=== PATIENT | female | born 1960 | race Caucasian/White ===

== ENCOUNTER 2019-03-21 12:22 | Emergency (ER) | payer BC ==
[2019-03-21 12:41] VITALS: BP 127/71
--- NOTE | 2019-03-21 13:22 | UC ---
Complaint Female HPI - HPI Summary HPI Summary: Patient is a 58-year-old female, history of IgA nephropathy, hypertension, here with urinary symptoms. Patient has urinary frequency and urgency at baseline. Over the past 3 weeks, patient's frequency and urgency has gotten worse. The past 24 hours, patient's had dysuria and bilateral flank pain. Patient states every time she has IgA nephropathy flare she has flank pain. Patient was told by her cat scan tech her no medications to help with her IgA nephropathy. Patient sees Dr. Mortensen for nephrology. Patient has no fever, chills, dull pain , nausea, vomiting, vaginal discharge, vaginal bleeding. Medications reviewed - History Of Current Complaint Chief Complaint: UCGU Stated Complaint: URINARY Time Seen by Provider: 03/21/19 12:44 Hx Obtained From: Patient Pain Intensity: 6 - Allergies/Home Medications Allergies/Adverse Reactions: Allergies Allergy/AdvReac Type Severity Reaction Status Date / Time latex Allergy Rash Verified 03/21/19 12:41 Sulfa (Sulfonamide Allergy Rash Verified 03/21/19 12:41 Antibiotics) Home Medications: Home Medications Adapalene 0.1% CREAM (NF) [Differin 0.1 % CREAM (NF)] 0.1 % EX BEDTIME 03/21/19 [History Confirmed 03/21/19] Armodafinil 250 mg PO DAILY 03/21/19 [History Confirmed 03/21/19] Atenolol TAB* [Tenormin TAB* 50 MG] 50 mg PO DAILY 03/21/19 [History Confirmed 03/21/19] Atorvastatin* [Lipitor*] 40 mg PO DAILY 03/21/19 [History Confirmed 03/21/19] Desloratadine [Desloratadine Odt] 2.5 mg PO DAILY 03/21/19 [History Confirmed ] Divalproex ER TAB(*) [Depakote ER TAB(*)] 1,000 mg PO BEDTIME 03/21/19 [History Confirmed 03/21/19] Epinastine 0.05% OPHTH(NF) [Elestat 0.05% OPTH ASAEL (NF)] 1 drop BOTH EYES BID [History Confirmed 03/21/19] Flunisolide NASAL (NF) [Nasalide NASAL (NF)] 2 spray .ROUTE DAILY 03/21/19 [ History Confirmed 03/21/19] Nortriptyline CAP* [Pamelor CAP*] 50 mg PO BEDTIME 03/21/19 [History Confirmed 03/21/19] Pantoprazole TAB (NF) [Protonix TAB (NF)] 20 mg PO DAILY 03/21/19 [History Confirmed 03/21/19] Sertraline* [Zoloft*] 150 mg PO DAILY 03/21/19 [History Confirmed 03/21/19] amLODIPine TAB* [Norvasc 5 mg TAB*] 10 mg PO DAILY 03/21/19 [History Confirmed 03/21/19] traMADol TAB* [Ultram*] 50 mg PO Q8H PRN 03/21/19 [History Confirmed 03/21/19] PMH/Surg Hx/FS Hx/Imm Hx Previously Healthy: No - IgA nephropathy, hypertension, hypercholesterolemia, depression, migraines Other History Of: Negative For: Anticoagulant Therapy - Surgical History Surgical History: Yes Surgery Procedure, Year, and Place: 1967- [facility] appendectomy, 1979 [facility] [place]-benign fibroid tumor removed (right) breast, 1996 [facility] [place] knee, 1999 [facility] [place]- (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- IGA NEPHROPATHY. (right) achilles tendon, [facility] (left) achilles. tendon, 02/02 [facility]- (right) hand carpal tunnel & trigger. thumb, 03/05 [facility]- (left) hand carpal tunnel & trigger thumb release - Family History Known Family History: Positive: Non-Contributory - Social History Alcohol Use: None Substance Use Type: None Substance Use Comment - Amount & Last Used: none in 14 yrs Smoking Status (MU): Former Smoker Type: Cigarettes Have You Smoked in the Last Year: Yes When Did the Patient Quit Smoking/Using Tobacco: october 2018 - Immunization History Most Recent Influenza Vaccination: fall 2014 Most Recent Tetanus Shot: up to date Review of Systems All Other Systems Reviewed And Are Negative: Yes Constitutional: Negative: Fever, Chills Respiratory: Negative: Shortness Of Breath Cardiovascular: Negative: Chest Pain Gastrointestinal: Negative: Abdominal Pain, Vomiting, Diarrhea, Nausea Genitourinary: Positive: Dysuria, Hematuria, Frequency, Urgency. Negative: Vaginal/Penile Burning, Vaginal/Penile Itching, Vaginal/Penile Discharge Physical Exam - Summary Physical Exam Summary: Vital Signs Reviewed: Yes A+Ox3, no distress Eyes: Conjunctiva Clear, PERRL. EOM intact and full ENT: Hearing grossly normal TM x 2 clear, moist, uvula midline, no exudate, no erythema Neck: Positive: Supple Respiratory: Positive: No respiratory distress, No accessory muscle use + CTA throughout no w/r Cardiovascular: RRR nl s1, s2 no m/r CBT <2 sec. No CVA TTP abd soft + BS nt/nd no guarding, no distension Musculoskeletal Exam: FLOWERS x 4 without difficulty Strength Intact, ROM Intact Neurological: Positive: Alert, + sensation throughout Psychological: Positive: Normal Response To Family Skin: no rash, no ecchymosis Vital Signs: Initial Vital Signs Temp 97.1 F 03/21/19 12:29 Pulse 85 03/21/19 12:29 Resp 16 03/21/19 12:29 BP 127/71 03/21/19 12:29 Pulse Ox 97 03/21/19 12:29 Complaint Female Dx - Course Course Of Treatment: Patient is here with symptoms consistent with cystitis. Patient does not have pyelonephritis on exam or through history. The only reflect symptom and patient 's history is a history of IgA nephropathy. Patient does have blood in protein in her urine which is baseline for her. Patient was started on Keflex and was encouraged to call her cat scan tech on Saturday to set appointment in the next 1- 3 days. - Differential Dx/Diagnosis Provider Diagnosis: Cystitis, IgA nephropathy Discharge ED - Sign-Out/Discharge Documenting (check all that apply): Patient Departure All imaging exams completed and their final reports reviewed: No Studies - Discharge Plan Condition: Stable Disposition: HOME Prescriptions: Cephalexin CAP* [Keflex CAP*] 500 mg PO QID 7 Days #28 cap Patient Education Materials: Urinary Tract Infection in Women (ED) Forms: *Work Release Referrals: Lucy Britt MD [Primary Care Provider] - Nicholas Mcclellan MD [Medical Doctor] - Additional Instructions: Please follow up with your cat scan tech in the next 1-3 days Please take your antibiotics Please go to the emergency department if you have worsening pain, fever, more blood in your urine, vomiting, any other concerning symptoms - Billing Disposition and Condition Condition: STABLE Disposition: Home
--- NOTE | 2019-03-23 09:43 | UC ---
- Progress Note Progress Note: Ms. Barber's final urine culture revealed no growth. I recommended she stop the antibiotics and follow up as previously directed. Course/Dx - Diagnoses Provider Diagnoses: Cystitis, IgA nephropathy Discharge ED - Sign-Out/Discharge Documenting (check all that apply): Patient Departure All imaging exams completed and their final reports reviewed: No Studies - Discharge Plan Condition: Stable Disposition: HOME Prescriptions: Cephalexin CAP* [Keflex CAP*] 500 mg PO QID 7 Days #28 cap Patient Education Materials: Urinary Tract Infection in Women (ED) Forms: *Work Release Referrals: Lucy Britt MD [Primary Care Provider] - Nicholas Mcclellan MD [Medical Doctor] - Additional Instructions: Please follow up with your patternmaker helper in the next 1-3 days Please take your antibiotics Please go to the emergency department if you have worsening pain, fever, more blood in your urine, vomiting, any other concerning symptoms - Billing Disposition and Condition Condition: STABLE Disposition: Home
== END 2019-03-21 13:40 | disposition home or self-care (01) ==
LOC: UCEAST 12:22
DX: N30.00 Acute cystitis without hematuria (principal); N02.8 Recurrent and persistent hematuria with other morphologic changes; I10 Essential (primary) hypertension; G43.909 Migraine, unspecified, not intractable, without status migrainosus; F32.9 Major depressive disorder, single episode, unspecified; Z88.2 Allergy status to sulfonamides; Z91.040 Latex allergy status; Z87.891 Personal history of nicotine dependence
CPT/HCPCS: 81003; 87086; 99212; G0463

== ENCOUNTER 2021-06-08 18:19 | Observation (INO) ==
[2021-06-08] MEDS: HYDROmorphone 1 MG/1 ML SYRINGE IV PRN ×5 (16:40→17:00)
[2021-06-08] MEDS: Lactated Ringers 1000 ml BAG 1,000 ML IV SCH (18:10)
[~2021-06-08 18:19] MED LIST: Acetaminophen IV 1 GM/100ML 100 ML IV ONE; Buffered Lidocaine 1% SYRIN 1 ml INTRADERM ONE; Bupivacaine 0.5% SDV PF 30ML VIAL ONE; Dexamethasone IV 4 MG/ML VIAL 1 ml VIAL ONE; DiMENhydriNATE IV 50 mg/ml 1 ml VIAL IV PUSH PRN; ELETRIPTAN 40 MG PO PRN; HYDROmorphone 1 MG/1 ML SYRINGE ONE; Lactated Ringers 1000 ml BAG 1,000 ML IV SCH; Lactulose 30 ml UDC PO PRN; Magnesium Hydroxide LIQ 30 ML UDC PO PRN; Midazolam 2 mg/2 ml VIAL 1 mg/ml 2 ml VIAL (2 mg) ONE; Morphine 2 MG/ML SYRINGE IV PRN; Naloxone 0.4 mg VIAL 0.4 mg/ml 1 ml VIAL IV PRN; Ondansetron 4 mg VIAL 2 MG/ML 2 ml VIAL IV PRN; Ondansetron 4 mg VIAL 2 MG/ML 2 ml VIAL ONE; Ondansetron ODT 4 mg TAB 4 MG TAB PO PRN; Propofol 10 mg/ml 100 ML BTL 100 ML ONE; ceFAZolin 2 GM PREMIX 2 GM/50 ML BAG ONE; diPHENhydraMINE 25 mg TAB PO PRN; diPHENhydraMINE IV 50 MG/ML 1 ml VIAL (BENADRYL) IV PRN; fentaNYL 100 mcg/2 ml 50 MCG/ML VIAL IV PRN
[2021-06-08] MEDS ORDERED: Albuterol HFA INHALER 8 gm MDI INH PRN (18:23)
[2021-06-08] MEDS: Magnesium Hydroxide LIQ 30 ML UDC PO SCH (20:59)
[2021-06-09] MEDS: ceFAZolin 1 GM ADVAN 1 GM in NS 0.9% 50 ML 50 ML IVPB SCH ×3 (00:01→13:53)
[2021-06-09 05:02] LABS: Hematocrit 26 % (35-47); Hemoglobin 8.9 g/dL (12.0-16.0); Mean Platelet Volume 7.8 fL (7.4-10.4); Platelet Count 174 10^3/uL (150-450)
[2021-06-09 05:24] LABS: Calcium 8.9 mg/dL (8.6-10.3); eGFR CKD-EPI 67.7 (>60)
[2021-06-09] MEDS: Lactated Ringers 1000 ml BAG 1,000 ML IV SCH (06:20)
[2021-06-09] MEDS ORDERED: Vitamin THERAPEUTIC TAB PO SCH (09:00)
[2021-06-09] MEDS: Magnesium Hydroxide LIQ 30 ML UDC PO SCH (10:33)
[2021-06-09 12:22] VITALS: BP 106/43
== END 2021-06-09 15:00 | disposition home or self-care (01) ==
LOC: SSU 18:19 → OR 18:19
PROVIDERS: ADMIT Orthopaedic Surgery Adult Reconstructive Orthopaedic Surgery; ATTEND Orthopaedic Surgery Adult Reconstructive Orthopaedic Surgery

== ENCOUNTER 2023-12-08 18:58 | Inpatient (IN) ==
[2023-12-08] MEDS: Orphenadrine Citrate INJ 30 mg/ml 2 ml VIAL (60 mg) IV ONE (20:01)
[2023-12-08 20:12] LABS: ABS Basophils 0.1 10^3/uL (0.0-0.1); ABS Lymphocytes 1.4 10^3/uL (1.0-4.8); ABS Monocytes 1.1 10^3/uL (0.0-0.9); ABS Neutrophils 8.7 10^3/uL (1.5-7.6); Eosinophil % 0.4 %; Hematocrit 35.2 % (35-45); Hemoglobin 11.8 g/dL (11.5-14.3); Lymphocyte % 12.6 %; Mean Corpuscular Hemoglobin 30.8 pg (27-33); Mean Corpuscular Hgb Conc 33.4 g/dL (31-36); Mean Corpuscular Volume 92.4 fL (80-97); Mean Platelet Volume 7.6 fL (7.5-11.2); Platelet Count 428 10^3/uL (150-450); Red Blood Count 3.81 10^6/uL (3.63-4.92); Red Cell Distribution Width 14.9 % (12-17); White Blood Count 11.3 10^3/uL (3.8-11.8)
[2023-12-08 21:07] LABS: Albumin 3.6 g/dL (3.2-5.2); Albumin/Globulin Ratio 0.9 (1-3); Calcium 9.6 mg/dL (8.6-10.3); Creatinine, Serum 0.75 mg/dL (0.51-0.95); Globulin 3.8 g/dL (2-4); Potassium 4.8 mmol/L (3.5-5.0); Total Bilirubin 0.3 mg/dL (0.2-1.0); Total Protein 7.4 g/dL (6.4-8.9); eGFR CKD-EPI 88.3 (>60)
[2023-12-08] MEDS: Iohexol 350 (CONTRAST) 500 ML MDV IV ONE (22:19)
[2023-12-08] MEDS: NS 0.9% 1000 ml BAG 1,000 ML IV ONE (22:46)
[2023-12-09] MEDS: Ondansetron ODT 4 mg TAB 4 MG TAB PO ONE (01:46)
[2023-12-09] MEDS: Lidocaine PATCH 5% PATCH TRANSDERM ONE (03:31)
[2023-12-09] MEDS: Morphine 4 MG/ML VIAL (1 ml) IV ONE (03:33)
[2023-12-09] MEDS ORDERED: Morphine 4 MG/ML VIAL (1 ml) IV PRN (04:05)
[2023-12-09] MEDS ORDERED: Naloxone 0.4 mg VIAL 0.4 mg/ml 1 ml VIAL IV PUSH PRN (04:06)
[2023-12-09] MEDS ORDERED: Morphine 2 MG/ML SYRINGE IV PRN (04:06)
[2023-12-09] MEDS ORDERED: Albuterol HFA INHALER 8 gm MDI INH PRN (05:01)
[2023-12-09] MEDS: Enoxaparin 40 MG/0.4 ML SYR SUBCUT SCH (05:10)
[2023-12-09 06:15] LABS: Calcium 8.7 mg/dL (8.6-10.3); Creatinine, Serum 0.7 mg/dL (0.51-0.95); Potassium 4.2 mmol/L (3.5-5.0); eGFR CKD-EPI 95.9 (>60)
[2023-12-09] MEDS: Acetaminophen IV 1 GM/100ML 1,000 MG/100 ML BAG IV PRN (11:27)
[2023-12-09] MEDS: Ondansetron 4 mg VIAL 2 MG/ML 2 ml VIAL IV PRN (11:27)
[2023-12-09] MEDS: Magnesium Hydroxide LIQ 30 ML UDC PO SCH (20:30)
[2023-12-10 06:21] LABS: ABS Basophils 0.1 10^3/uL (0.0-0.1); ABS Eosinophils 0.2 10^3/uL (0.0-0.5); ABS Lymphocytes 1.6 10^3/uL (1.0-4.8); ABS Monocytes 1.1 10^3/uL (0.0-0.9); ABS Neutrophils 8.1 10^3/uL (1.5-7.6); ABS Nucleated RBC 0.01 10^3/ul; Eosinophil % 1.4 %; Hematocrit 34.5 % (35-45); Hemoglobin 11.7 g/dL (11.5-14.3); Lymphocyte % 14.4 %; Mean Corpuscular Hemoglobin 31.9 pg (27-33); Mean Corpuscular Hgb Conc 34.1 g/dL (31-36); Mean Corpuscular Volume 93.6 fL (80-97); Mean Platelet Volume 7.9 fL (7.5-11.2); Platelet Count 345 10^3/uL (150-450); Red Blood Count 3.68 10^6/uL (3.63-4.92); Red Cell Distribution Width 14.9 % (12-17); White Blood Count 10.9 10^3/uL (3.8-11.8)
[2023-12-10] MEDS: HYDROmorphone 1 MG/1 ML SYRINGE IV SLOW PU PRN (11:57)
[2023-12-10 12:33] LABS: Body Fluid Appearance Cloudy; Body Fluid Color Amber; Body Fluid Source Pleural Fluid
[2023-12-10 12:41] LABS: Body Fluid Total Nucleated 1902 /mcL
[2023-12-10 13:04] LABS: Body Fluid Mono 7 %; Body Fluid Other Cells 1; Body Fluid Total Cells Counted 200
[2023-12-10 15:03] LABS: Albumin 3.3 g/dL (3.2-5.2); Calcium 9.1 mg/dL (8.6-10.3); Creatinine, Serum 0.58 mg/dL (0.51-0.95); Globulin 3.3 g/dL (2-4); Potassium 4.7 mmol/L (3.5-5.0); Total Bilirubin 0.3 mg/dL (0.2-1.0); Total Protein 6.6 g/dL (6.4-8.9); eGFR CKD-EPI 100.4 (>60)
[2023-12-10] MEDS: Magnesium Hydroxide LIQ 30 ML UDC PO PRN (15:27)
[2023-12-10] MEDS: Senna TAB 8.6 mg TAB PO PRN (15:28)
[2023-12-11 07:01] LABS: ABS Eosinophils 0.1 10^3/uL (0.0-0.5); ABS Lymphocytes 1.2 10^3/uL (1.0-4.8); ABS Monocytes 1.4 10^3/uL (0.0-0.9); ABS Neutrophils 9.1 10^3/uL (1.5-7.6); ABS Nucleated RBC 0.01 10^3/ul; Hematocrit 33.6 % (35-45); Hemoglobin 11.3 g/dL (11.5-14.3); Lymphocyte % 10.4 %; Mean Corpuscular Hemoglobin 30.9 pg (27-33); Mean Corpuscular Hgb Conc 33.5 g/dL (31-36); Mean Corpuscular Volume 92.1 fL (80-97); Mean Platelet Volume 7.6 fL (7.5-11.2); Nucleated Red Blood Cells % 0.1 %/100WBC (0.0-0.8); Platelet Count 333 10^3/uL (150-450); Red Blood Count 3.65 10^6/uL (3.63-4.92); Red Cell Distribution Width 14.9 % (12-17); White Blood Count 11.9 10^3/uL (3.8-11.8)
[2023-12-11 07:58] LABS: Calcium 8.9 mg/dL (8.6-10.3); Creatinine, Serum 0.61 mg/dL (0.51-0.95); Potassium 5.4 mmol/L (3.5-5.0); eGFR CKD-EPI 99.2 (>60)
[2023-12-11] MEDS: Polyethylene Glycol 3350 17 GM PACKET PO PRN (08:52)
[2023-12-11] MEDS: Enoxaparin 40 MG/0.4 ML SYR SUBCUT SCH (08:52)
[2023-12-11 11:16] LABS: C Reactive Protein 100.71 mg/L (<8.01)
[2023-12-11] MEDS: SODIUM ZIRCONIUM CYCLOSILICATE 10 GM PACKET PO ONE (11:24)
[2023-12-11 12:18] LABS: Erythrocyte Sed Rate 62 mm/Hr (0-29)
[2023-12-11 18:32] LABS: Urine Appearance Clear; Urine Bilirubin Negative (Negative); Urine Blood 1+ (Negative); Urine Color Yellow; Urine Glucose Negative (Negative); Urine Ketones Trace (Negative); Urine Nitrite Negative (Negative); Urine Protein 1+ (>=30 mg/dL) (Negative); Urine Specific Gravity 1.026 (1.002-1.030); Urine Urobilinogen Negative (Negative); Urine pH 7.5 (5.0-8.0)
[2023-12-11 18:39] LABS: Urine Bacteria 1+ /HPF (Absent); Urine Red Blood Cell 3+(>10/hpf) /HPF (0-Trace); Urine Squamous Epithelial Cell Present /HPF (Absent); Urine White Blood Cell 3+(>20/hpf) /HPF (0-Trace)
[2023-12-12 06:45] LABS: Hematocrit 32.9 % (35-45); Hemoglobin 11.2 g/dL (11.5-14.3); Mean Corpuscular Hemoglobin 31.5 pg (27-33); Mean Corpuscular Hgb Conc 34.2 g/dL (31-36); Mean Corpuscular Volume 92.1 fL (80-97); Mean Platelet Volume 8.3 fL (7.5-11.2); Platelet Count 344 10^3/uL (150-450); Red Blood Count 3.57 10^6/uL (3.63-4.92); White Blood Count 10.7 10^3/uL (3.8-11.8)
[2023-12-12 07:06] LABS: Calcium 8.6 mg/dL (8.6-10.3); Creatinine, Serum 0.6 mg/dL (0.51-0.95); Potassium 4.5 mmol/L (3.5-5.0); eGFR CKD-EPI 99.5 (>60)
[2023-12-12 09:53] LABS: Glucose, BF 87 mg/dL
[2023-12-12 09:54] LABS: Albumin, BF 2.8 g/dL; Fluid Type, Albumin PLEURAL FLUID
[2023-12-12 09:55] LABS: Lactate Dehydrogenase, BF 396 U/L
[2023-12-12] MEDS ORDERED: oxyCODONE/Acetamin 5/325 mg TAB PO PRN (09:55)
[2023-12-12 09:57] LABS: Fluid Type, Protein, Total PLEURAL FLUID; Total Protein, BF 4.8 g/dL
[2023-12-12] MEDS: Lidocaine PATCH 4% TOPICAL SCH (13:28)
[2023-12-12] MEDS: oxyCODONE SR 10 mg TAB PO SCH (13:28)
[2023-12-12] MEDS: HYDROmorphone 1 MG/1 ML SYRINGE IV SLOW PU PRN (18:16)
[2023-12-13 04:30] LABS: Urine Creatinine Concentration 126.49 mg/dL (20.00-320.00); Urine TP Creat Ratio 0.37 mg/mg
[2023-12-13] MEDS: HYDROmorphone 1 MG/1 ML SYRINGE IV SLOW PU PRN (08:59)
[2023-12-13 14:52] LABS: Immunoglobulin G 1190 mg/dL (767 - 1590); Immunoglobulin M 80 mg/dL (37 - 286)
[2023-12-13 15:20] LABS: Complement C3 158 mg/dL (75 - 175)
[2023-12-13] MEDS: Morphine ER 30 mg TAB ** extended release PO SCH (20:54)
[2023-12-13] MEDS: Gadoteridol (CONTRAST) 279.3 MG/ML 10 ML IV ONE ×2 (21:55→23:00)
[2023-12-13] MEDS ORDERED: Morphine ER 15 mg TAB ** extended release PO SCH (22:00)
[2023-12-15] MEDS: Polyethylene Glycol 3350 17 GM PACKET PO SCH (11:33)
[2023-12-15] MEDS: Magnesium Hydroxide LIQ 30 ML UDC PO SCH (21:04)
[2023-12-15] MEDS: Senna TAB 8.6 mg TAB PO SCH (21:04)
[2023-12-16 07:46] LABS: Hematocrit 32.9 % (35-45); Mean Corpuscular Hemoglobin 31.2 pg (27-33); Mean Corpuscular Hgb Conc 33.5 g/dL (31-36); Mean Corpuscular Volume 93.1 fL (80-97); Mean Platelet Volume 8.9 fL (7.5-11.2); Platelet Count 321 10^3/uL (150-450); Red Blood Count 3.53 10^6/uL (3.63-4.92); Red Cell Distribution Width 14.8 % (12-17); White Blood Count 10.9 10^3/uL (3.8-11.8)
[2023-12-16 08:04] LABS: Calcium 8.9 mg/dL (8.6-10.3); Creatinine, Serum 0.58 mg/dL (0.51-0.95); Potassium 4.8 mmol/L (3.5-5.0); eGFR CKD-EPI 100.4 (>60)
[2023-12-16] MEDS: Lactulose 30 ml UDC PO SCH (13:03)
[2023-12-16] MEDS ORDERED: fentaNYL PATCH 37.5 MCG/HR(NF) PATCH.TD72 TRANSDERM SCH (15:00)
[2023-12-16] MEDS: fentaNYL PATCH 12 MCG/HR 1 PATCH TRANSDERM SCH (15:49)
[2023-12-16] MEDS: fentaNYL PATCH 25 MCG/HR 1 PATCH TRANSDERM SCH (15:50)
[2023-12-16] MEDS: Lidocaine PATCH 4% TOPICAL SCH (16:21)
[2023-12-16] MEDS: Lidocaine PATCH 5% PATCH TRANSDERM SCH (16:32)
[2023-12-16] MEDS: fentaNYL Patch Check Q Shift NOTE FOLLOW UP SCH ×2 (20:51→20:52)
[2023-12-18 06:59] LABS: Hematocrit 30.9 % (35-45); Hemoglobin 10.3 g/dL (11.5-14.3); Mean Corpuscular Hemoglobin 30.8 pg (27-33); Mean Corpuscular Hgb Conc 33.4 g/dL (31-36); Mean Corpuscular Volume 92.2 fL (80-97); Mean Platelet Volume 8.9 fL (7.5-11.2); Platelet Count 328 10^3/uL (150-450); Red Blood Count 3.35 10^6/uL (3.63-4.92); Red Cell Distribution Width 14.6 % (12-17); White Blood Count 10.1 10^3/uL (3.8-11.8)
[2023-12-18 09:22] LABS: Calcium 8.9 mg/dL (8.6-10.3); Creatinine, Serum 0.64 mg/dL (0.51-0.95)
[2023-12-21] MEDS ORDERED: Naloxone Nasal Spray 4 MG/0.1 ML NASAL.SPR INTRANASAL PRN (20:22)
[2023-12-22 06:36] LABS: Hematocrit 30.7 % (35-45); Hemoglobin 10.4 g/dL (11.5-14.3); Mean Corpuscular Hemoglobin 31.4 pg (27-33); Mean Corpuscular Hgb Conc 33.9 g/dL (31-36); Mean Corpuscular Volume 92.6 fL (80-97); Mean Platelet Volume 7.6 fL (7.5-11.2); Platelet Count 442 10^3/uL (150-450); Red Blood Count 3.31 10^6/uL (3.63-4.92); Red Cell Distribution Width 14.8 % (12-17)
[2023-12-22 06:49] LABS: Calcium 8.8 mg/dL (8.6-10.3); Creatinine, Serum 0.6 mg/dL (0.51-0.95); Potassium 4.7 mmol/L (3.5-5.0); eGFR CKD-EPI 99.5 (>60)
[2023-12-23] MEDS: Lactated Ringers 1000 ml BAG 1,000 ML IV ONE (11:54)
[2023-12-24 07:38] LABS: Hematocrit 27.2 % (35-45); Hemoglobin 9.4 g/dL (11.5-14.3); Mean Corpuscular Hemoglobin 31.6 pg (27-33); Mean Corpuscular Hgb Conc 34.7 g/dL (31-36); Mean Corpuscular Volume 91.2 fL (80-97); Mean Platelet Volume 8.5 fL (7.5-11.2); Platelet Count 392 10^3/uL (150-450); Red Blood Count 2.98 10^6/uL (3.63-4.92); Red Cell Distribution Width 14.9 % (12-17); White Blood Count 9.7 10^3/uL (3.8-11.8)
[2023-12-24 07:58] LABS: Calcium 8.6 mg/dL (8.6-10.3); Creatinine, Serum 0.65 mg/dL (0.51-0.95); Magnesium 2.1 mg/dL (1.9-2.7); Potassium 4.9 mmol/L (3.5-5.0); eGFR CKD-EPI 97.6 (>60)
[2023-12-24 08:23] LABS: ABS Lymphocytes 0.6 10^3/uL (1.0-4.8); ABS Monocytes 1.7 10^3/uL (0.0-0.9); ABS Neutrophils 7.4 10^3/uL (1.5-7.6); Eosinophil % 0.4 %; Lymphocyte % 5.8 %
[2023-12-24] MEDS: Lactated Ringers 1000 ml BAG 1,000 ML IV ONE (17:25)
[2023-12-25] MEDS: HYDROmorphone 1 MG/1 ML SYRINGE IV SLOW PU PRN (05:15)
[2023-12-25] MEDS: Lidocaine PATCH 5% PATCH TRANSDERM SCH (11:59)
[2023-12-26] MEDS: fentaNYL PATCH 50 MCG/HR 1 PATCH TRANSDERM SCH (12:54)
[2023-12-26] MEDS: fentaNYL Patch Check Q Shift NOTE FOLLOW UP SCH (13:15)
[2023-12-26] MEDS: Lactated Ringers 1000 ml BAG 1,000 ML IV ONE (14:38)
[2023-12-26] MEDS ORDERED: fentaNYL Patch Check Q Shift NOTE SCH (19:00)
[2023-12-28] MEDS: HYDROmorphone 1 MG/1 ML SYRINGE IV SLOW PU PRN (16:27)
[2023-12-29] MEDS: HYDROmorphone 1 MG/1 ML SYRINGE IV SLOW PU PRN (00:57)
[2023-12-29] MEDS ORDERED: Senna TAB 8.6 mg TAB PO PRN (23:57)
[2023-12-30 08:32] LABS: ABS Lymphocytes 0.6 10^3/uL (1.0-4.8); ABS Monocytes 1.4 10^3/uL (0.0-0.9); ABS Neutrophils 6.3 10^3/uL (1.5-7.6); ABS Nucleated RBC 0.01 10^3/ul; Eosinophil % 0.3 %; Hematocrit 29.6 % (35-45); Lymphocyte % 7.6 %; Mean Corpuscular Hemoglobin 30.8 pg (27-33); Mean Corpuscular Hgb Conc 33.7 g/dL (31-36); Mean Corpuscular Volume 91.5 fL (80-97); Mean Platelet Volume 8.2 fL (7.5-11.2); Nucleated Red Blood Cells % 0.1 %/100WBC (0.0-0.8); Platelet Count 400 10^3/uL (150-450); Red Blood Count 3.23 10^6/uL (3.63-4.92); Red Cell Distribution Width 14.9 % (12-17); White Blood Count 8.4 10^3/uL (3.8-11.8)
[2023-12-30 08:47] LABS: Anion Gap 7 mmol/L (2-16); Blood Urea Nitrogen 17 mg/dL (6-24); CO2 Carbon Dioxide 31 mmol/L (22-32); Calcium 8.5 mg/dL (8.6-10.3); Chloride 100 mmol/L (101-111); Creatinine, Serum 0.59 mg/dL (0.51-0.95); Glucose 78 mg/dL (70-100); Sodium 138 mmol/L (135-145)
[2023-12-30] MEDS: Magnesium Hydroxide LIQ 30 ML UDC PO SCH (12:55)
[2023-12-30] MEDS ORDERED: Magnesium Hydroxide LIQ 30 ML UDC PO PRN (13:27)
[2023-12-31] MEDS: Morphine ORAL.SOLN 10 mg 2 mg/ml UDC 5 ml (10 mg) PO PRN (16:16)
[2024-01-01] MEDS: Ondansetron ODT 4 mg TAB 4 MG TAB SL PRN (14:31)
[2024-01-01] MEDS: Morphine ORAL.SOLN 10 mg 2 mg/ml UDC 5 ml (10 mg) PO PRN (14:35)
[2024-01-02] MEDS ORDERED: Lactase Enzyme (NF) 3,000 UNIT TAB PO PRN (10:24)
[2024-01-02] MEDS: Morphine ORAL.SOLN 10 mg 2 mg/ml UDC 5 ml (10 mg) PO PRN (23:15)
[2024-01-03 05:43] VITALS: BP 109/77
== END 2024-01-03 11:03 | disposition hospice, home (50) | DRG 180 ==
LOC: EDHOLD 18:58 → ED 18:58 → SUATTDRO 12-09 03:59 → MEDTELE 12-09 11:48 → SUATTDRO 12-11 10:54 → MED 12-28 09:17
PROVIDERS: ADMIT Student in an Organized Health Care Education/Training Program; ATTEND Internal Medicine